=== PATIENT | female | born 1980 | race Caucasian/White ===

== ENCOUNTER 2016-08-05 17:06 | Emergency (ER) | payer OTHER ==
--- NOTE | 2016-08-05 18:38 | PROVIDER DOCUMENTATION ---
HPI-EE General - General Source: patient - History of Present Illness-EENT General EE Location: reports: throat Quality of Pain: reports: aching Severity: reports: mild Onset/Duration: reports: this morning Timing: reports: still present Prearrival Treatment: Initiated no prearrival treatment Associated Symptoms: reports: cough, fever (subjective), sore throat Locality of Occurance: Home Similar Symptoms Previously?: No Recently seen or treated by another doctor?: No <Jacey Griffin - Last Filed: 08/05/16 18:33> <Olimpia Daley - Last Filed: 08/05/16 18:43> - General Chief Complaint: Sore Throat Stated Complaint: SORE THROAT Time Seen by Provider: 08/05/16 18:33 Allergies/Adverse Reactions: Patient Allergies Allergy/AdvReac Type Severity Reaction Status Date / Time Penicillins Allergy ANAPHYLAXIS Verified 01/21/16 09:21 Home Medications: Home Medication List Medication Instructions Recorded Confirmed Last Taken Type Azithromycin [Zithromax Z-Jan] 250 mg PO DIRECTED #1 pkg 08/05/16 Unknown Rx Brompheniramine/Pseudoephed/Dm 5 ml PO Q6H PRN PRN #200 ml 08/05/16 Unknown Rx [Bromfed Dm Cough Syrup] Methylprednisolone [Medrol Dosepak] 4 mg PO DIRECTED #1 package 08/05/16 Unknown Rx - History of Present Illness-[facility] General Nature of Presenting Problem: 36 year old F presents to the ED with a cc of a sore throat with an onset of this morning. PT states that throughout the day the sore throat has become worse and she has had nausea, vomiting, and cough. PT states that she has had one episode of vomiting. 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 PT states that she has also felt like she has had a fever today but did not check her fever. (Jacey Griffin) Review of Systems - Adult - REVIEW OF SYSTEMS - ADULT Constitutional: reports: fever (subjective). denies: chills Eyes: reports: no symptoms reported Ears, Nose, Mouth & Throat: reports: throat pain. denies: ear pain Cardiovascular: reports: no symptoms reported Respiratory: reports: cough. denies: shortness of breath Gastrointestinal: reports: nausea, vomiting Genitourinary: reports: no symptoms reported Musculoskeletal: reports: no symptoms reported Integumentary: reports: no symptoms reported Neurological: reports: no symptoms reported Psychiatric: reports: no symptoms reported Endocrine: reports: no symptoms reported Hematologic/Lymphatic: reports: no symptoms reported Allergic/Immunologic: reports: no symptoms reported All Other Systems: Reviewed and Negative <Jacey Griffin - Last Filed: 08/05/16 18:33> Past History - Adult - PAST MEDICAL HISTORY-ADULT Review of Records: reports: Nursing Assessment Review, Medications Reviewed Major Childhood Illnesses: reports: denies history Cardiovascular: reports: denies history Respiratory: reports: denies history Gastrointestinal: reports: denies history Obstetrical/Gynecological: reports: denies history Genitourinary: reports: denies history Musculoskeletal: reports: denies history Neurological: reports: denies history Endocrine/Immune: reports: denies history Other Conditions: reports: denies history - PRIOR SURGERIES/PROCEDURES Surgical/Procedure History: reports: none - IMMUNIZATION STATUS Childhood Immunizations: See Nurse Assessment Flu Vaccine: See Nurse Assessment - FAMILY HISTORY Family History: reviewed, not pertinent <Jacey Griffin - Last Filed: 08/05/16 18:33> Physical Exam- EENT - Physical Exam EENT Initial Vital Signs Reviewed: Yes General Appearance: appears well, alert, no apparent distress Throat Exam: normal mouth inspection, other (pharyngeal erythema) Respiratory: chest non-tender, lungs clear, normal breath sounds Cardiovascular: normal peripheral pulses, regular rate, rhythm, no edema Integumentary: normal color, normal turgor, warm/dry Psych/Mental Status: normal mood/affect, normal thought content, normal thought process, oriented x 3 <Jacey Griffin - Last Filed: 08/05/16 18:33> Progress <Jacey Griffin - Last Filed: 08/05/16 18:33> <Olimpia Daley - Last Filed: 08/05/16 18:43> - PLAN OF CARE/RESULTS Progress/Plan/Lab Results: Laboratory Tests 08/05/16 08/05/16 17:30 17:30 Influenza A (Rapid) NEGATIVE Influenza B (Rapid) NEGATIVE Group A Strep Rapid NEGATIVE Orders Category Date Time Status INFLUENZA SCREEN PL Stat Lab 08/05/16 17:30 Completed strep [DIRECT STREP PL] Stat Lab 03/09/17 17:30 Completed Vital Signs Temp Pulse Resp BP Pulse Ox 08/05/16 17:36 98.3 F 97 H 20 122/85 97 Penicillins Allergy (Verified 01/21/16 09:21) ANAPHYLAXIS Laboratory 08/05/16 08/05/16 17:30 17:30 Influenza A (Rapid) NEGATIVE Influenza B (Rapid) NEGATIVE Group A Strep Rapid NEGATIVE (Olimpia Daley) Departure <Jcaey Griffin - Last Filed: 08/05/16 18:33> - Departure Time of Disposition Order: 18:39 Certified Medical Emergency: Emergent <Olimpia Daley - Last Filed: 08/05/16 18:43> - Departure DIAGNOSIS: Sore throat, Cough Disposition: HOME 01 Condition: Good Additional Instructions: ED Follow Up Instructions: You have been treated by a care provider in the Emergency Department. These instructions are being provided to you so you can have an understanding of how to care for yourself upon discharge. Upon discharge from the Emergency Department, you are responsible for making arrangements for follow-up care by a physician of your choice. Take all prescribed medications as directed. Return to the Emergency Department immediately for any new or worsening symptoms. You may call the Physician Referral phone number at [phone] to obtain a list of Physicians who are taking new patients. Prescriptions: Brompheniramine/Pseudoephed/Dm [Bromfed Dm Cough Syrup] 5 ml PO Q6H PRN PRN # 200 ml PRN Reason: cough, congestion Methylprednisolone [Medrol Dosepak] 4 mg PO DIRECTED #1 package Azithromycin [Zithromax Z-Jan] 250 mg PO DIRECTED #1 pkg Attestation - Scribe Verification/Attestation Scribe:: Jacey Griffin Acting as Scribe for:: Olimpia Daley Scribe documention review:: This chart was documented by a scribe and accurately reflects the service the provider performed and the decisions made by the provider. <Jacey Griffin - Last Filed: 08/05/16 18:33> - Physician/ TRAVIS Attestation Patient care was provided by Advanced Practice Provider:: Yes Advanced Practice Provider:: Olimpia Daley Advanced Practice Provider documentation review:: The Mid-level provider documentation, treatment plan and medical decision making was reviewed by the physician who agrees with all treatment and medical decision making by the MLP. <Olimpia Daley - Last Filed: 08/05/16 18:43> Physician Attestation - Physician Attestation I, the provider, attest to the following statement:: Olimpia Daley Physician documentation Attestation:: This documentation recorded by the scribe accurately reflects the service I personally performed and the decisions made by me. <Jacey Griffin - Last Filed: 08/05/16 18:33>
[2016-08-05] MEDS ORDERED: DECADRON IM ONE (18:40)
[2016-08-05 18:56] VITALS: BP 133/96
== END 2016-08-05 18:57 | disposition home or self-care (01) ==
LOC: P.ED 17:06
DX: J02.9 Acute pharyngitis, unspecified (principal); R05 Cough; R50.9 Fever, unspecified; R11.2 Nausea with vomiting, unspecified
CPT/HCPCS: 87081; 87430; 87804; 96372